=== PATIENT | female | born 1975 | race African-American/Black ===

== ENCOUNTER 2017-02-24 14:01 | Emergency (ER) | payer BC ==
[2017-02-24 12:25] LABS: ASCORBIC ACID (UR NOT ORDER) NEG (NEG); BILIRUBIN, URINE NEGATIVE (NEG); ER URINALYSIS TAT 0 Hrs 14 Mins; KETONE, URINE NEGATIVE (NEG); LEUKOCYTE ESTERASE(NOT OR TRACE (NEG); NITRITE (URINE) NEG (NEG); WBC (NOT ORDERED) (RFLEX) 5 (0-5)
[2017-02-24 13:20] LABS: BASOPHILS 0.3 %; BASOPHILS ABSOLUTE 0.03 10/3/uL (0.0-0.16); EOSINOPHILS 1.7 %; EOSINOPHILS ABSOLUTE 0.16 10/3/uL (0.0-0.53); ER CBC TAT 0 Hrs 07 Mins; HEMOGLOBIN 10.3 g/dL (12.0-16.0); IMMATURE GRANULOCYTES 0.4 %; IMMATURE GRANULOCYTES ABSOLUTE 0.04 10/3/uL (0.0-0.11); LYMPHOCYTES 37.5 %; LYMPHOCYTES ABSOLUTE 3.52 10/3/uL (0.67-4.30); MEAN CORPUS HGB CONC 31.6 g/dL (32.0-36.0); MEAN CORPUSCULAR HEMOGLOB 25.7 pg (26.0-34.0); MEAN PLATELET VOLUME 8.9 fL (9.2-13.0); MONOCYTES 7.1 %; MONOCYTES ABSOLUTE 0.67 10/3/uL (0.21-1.20); NEUTROPHILS ABSOLUTE 4.97 10/3/uL (2.02-8.40); PLATELET COUNT 244 10/3/uL (150-400); RBC DISTRIBUTION WIDTH 14.6 % (12.0-16.0); RED CELL COUNT 4.01 10/6/uL (4.0-5.6); WHITE BLOOD CELLS 9.4 10/3/uL (4.5-10.5)
[2017-02-24 13:21] LABS: HEMATOCRIT 32.6 % (36.0-48.0); MANUAL DIFF NO %; MEAN CORPUSCULAR VOLUME 81.3 fL (80-100)
[2017-02-24 13:32] LABS: A/G RATIO 0.6 (0.7-1.9); ALKALINE PHOSPHATASE 84 U/L (45-117); BUN (BLOOD UREA NITROGEN) 17 MG/DL (6-23); CALCIUM, SERUM 8.6 MG/DL (8.5-10.4); CHLORIDE, SERUM 107 MMOL/L (96-112); CO2 (CARBON DIOXIDE) 25 MMOL/L (24-34); CREATININE 1.02 MG/DL (0.55-1.02); GFR AFRICAN AMERICAN 78 ML/MIN (>=60); GFR NON AFRICAN AMERICAN 67 ML/MIN (>=60); GLOBULIN 4.8 G/DL (2.5-4.1); GLUCOSE, SERUM 89 MG/DL (60-99); POTASSIUM, SERUM 3.7 MMOL/L (3.5-5.3); SGOT(AST) 10 U/L (5-40); SGPT(ALT) 16 U/L (5-65); SODIUM, SERUM 138 MMOL/L (135-148); TOTAL BILIRUBIN 0.1 MG/DL (0-1.2); TOTAL PROTEIN 7.8 G/DL (6.0-8.5)
[~2017-02-24 14:01] MED LIST: 8 HOUR650 MG PO; ACET500CAP PO; AMB5 PO; ASABAYER PO; AUG875 PO; B121000P IM/SC; BUM5 PO; CELLCEPT5 PO; CIMZIA SC; CIP5 PO; CIPRO PO; CORTEF20 MG PO; CORTEF5 PO; COUMADIN4 MG PO; CREON DR 36,001 EACH PO; DURA25 TOP; ENDOCET1 TA3 PO; ENTOCORT3 PO; ENTYVIO IV; FLAG500TAB PO; FLAGYL PO; FLUCON150 PO; FOLBEE PLUS OR; FOLIC PO; HUMIRA PEN SC; IBU400 PO; IMOD PO; IMU PO; IRON325 MG PO; KCL20UDL PO; KCL40UDL PO; KDUR20 PO; LIALDA1.2 GM PO; LOM PO; LOP25 PO; LOP50 PO; LOVENOX40 SC; MACROBID PO; MAGNESIUM; MAGNESIUM 200 MG PO; MAGNESIUM 250MG OTC PO; MAGOX4 PO; MAXIMUM D3 PO; MULTIPLE VIT PO; MYRBETRIQ50 MG PO; NEUR300 PO; NEUR600 PO; NEXIUM40 PO; NORCO1 TAB PO; OXYCOD PO; OXYCODONE IR PO; P10 PO; P20 PO; PCET PO; PENICILLN VK500 MG PO; PEP20 PO; PERCOCET1 TA4 PO; POT CHLORIDE20 % PO; POTASSIUM/MAGNESIUM IV; PR12.5 PO; PR25 PO; PRED50B PO; PREDNISONE2.5 MG PO; PROTONIX PO; QUESLITE PO; REMICADE IV; SPIRO50 PO; T PO; TOPXL25 PO; TUMSROLL PO; VALTREX5 PO; VITD PO; WELCHOL 625 MG625 MG PO; WELCHOL625 MG PO; ZOFRAN4 PO; ZOLOFT25 MG PO; [UNRECOGNIZED DRUG - OTHER] PO; [UNRECOGNIZED DRUG - OTHER] PO
== END 2017-02-24 16:23 | disposition home or self-care (01) ==
LOC: ER 14:01
PROVIDERS: Hospitalist
DX: G89.29 Other chronic pain (principal); R10.84 Generalized abdominal pain; R19.7 Diarrhea, unspecified; E83.42 Hypomagnesemia; E86.0 Dehydration; F31.9 Bipolar disorder, unspecified; D64.9 Anemia, unspecified; Z88.5 Allergy status to narcotic agent; Z88.1 Allergy status to other antibiotic agents; Z88.8 Allergy status to other drugs, medicaments and biological substances; Z79.899 Other long term (current) drug therapy
CPT/HCPCS: 80053; 81001; 83690; 83735; 84703; 85025; 96361; 96365; 96375; 99284; J1170; J2405; J3475